=== PATIENT | female | born 1965 ===

== ENCOUNTER 2016-07-04 15:18 | Emergency (ER) | payer BC, MEDICAID ==
[2016-07-04 15:18] VITALS: BMI 28.9
[2016-07-04 15:32] VITALS: BP 117/68; PULSE 86; RESP 18; TEMP 98.7; O2SAT 99
[2016-07-04] MEDS ORDERED: Oxycodone/Acetaminophen 5/325 mg Tab PO STA (15:59)
--- NOTE | 2016-07-04 16:01 | ED PDOC ---
Upper Extremity Pain/Injury Time Seen by Provider: 07/04/16 15:40 Chief Complaint (Nursing): Upper Extremity Problem/Injury Chief Complaint (Provider): Arm pain History Per: Patient Additional Complaint(s): pt. is a 50 yo female, no PMH, presents into ER c/o rt. upper arm pain x 3 days. states while taking out the garbage she heard a crack in her upper arm. also c/o nasal congestion since last night. states she has taken Tylenol with minimal relief. Past Medical History Reviewed: Nursing Documentation, Vital Signs Vital Signs: Last Vital Signs Temp 98.7 F 07/04/16 15:30 Pulse 86 07/04/16 15:30 Resp 18 07/04/16 15:30 BP 117/68 07/04/16 15:30 Pulse Ox 99 07/04/16 15:30 - Medical History PMH: Anemia, Anxiety, CVA, HTN, Kidney Stones, Pneumonia Denies: Alzheimer's Disease, Arthritis, Asthma, Atrial Fibrillation, Bipolar Disorder, Bronchitis, CAD, Cardia Arrhythmia, CHF, COPD, Crohn's Disease, Dementia, Depression, Diverticulitis, Emphysema, Fractures, Gastritis, Gall Bladder Disease, HIV, Hypercholesterolemia, Hyperthyroidism, Hypothyroidism, Migraine, Mitral Valve Prolapse, Multiple Sclerosis, Osteoporosis, Pancreatitis , Paranoia, Parkinson's Disease, Peripheral Edema, Post Traumatic Stress Disorder, Pulmonary Embolism, Chronic Kidney Disease, Rheumatoid Arthritis, Schizophrenia, Seizures, Sickle Cell Disease, Sexually Transmitted Disease, Sleep Apnea, TIA - Surgical History Surgical History: Denies: Appendectomy, CABG, Carotid Endarterectomy, Cholecystectomy, Coronary Stent, Pacemaker, Tonsillectomy - Family History Family History: States: Unknown Family Hx - Home Medications Home Medications: Ambulatory Orders Medication Instructions Recorded Aspirin 325 mg PO DAILY 11/14/14 ALPRAZolam [Xanax] 0.25 mg PO Q12 PRN #0 tab 11/15/14 Atorvastatin Calcium [Lipitor] 10 mg PO DAILY #30 tab 11/15/14 Guaifenesin/Pseudoephedrne HCl 1 ter PO Q12H PRN #10 ter 03/17/16 [Mucinex D 600 mg-60 mg] Oseltamivir Phosphate [Tamiflu] 75 mg PO BID #10 capsule 03/17/16 Lidocaine 1 each TP Q12 #12 adh..patch 07/04/16 traMADol [Ultram] 50 mg PO Q4 #15 tab 07/04/16 - Allergies Allergies/Adverse Reactions: Allergies Allergy/AdvReac Type Severity Reaction Status Date / Time No Known Allergies Allergy Verified 07/04/16 15:30 Review of Systems ROS Statement: Except As Marked, All Systems Reviewed And Found Negative ENT: Positive for: Nose Congestion Musculoskeletal: Positive for: Arm Pain Physical Exam - Reviewed Nursing Documentation Reviewed: Yes Vital Signs Reviewed: Yes - Physical Exam Appears: Positive for: Well, Non-toxic, No Acute Distress Head Exam: Positive for: ATRAUMATIC, NORMAL INSPECTION, NORMOCEPHALIC Skin: Positive for: Normal Color, Warm, DRY Eye Exam: Positive for: EOMI, Normal appearance, PERRL ENT: Positive for: Normal ENT Inspection Neck: Positive for: Normal, Painless ROM Cardiovascular/Chest: Positive for: Regular Rate, Rhythm Respiratory: Positive for: CNT, Normal Breath Sounds Gastrointestinal/Abdominal: Positive for: Normal Exam, Bowel Sounds, Soft Back: Positive for: Normal Inspection Extremity: Positive for: Normal ROM, Tenderness (over lateral shoulder). Negative for: Deformity, Swelling Neurologic/Psych: Positive for: Alert, Oriented - ECG O2 Sat by Pulse Oximetry: 99 Medical Decision Making Medical Decision Making: XR: DJD, NAD, as read by LIV Medicated with 1 tab Percocet PO Reports feeling improved on re-eval Disposition - Clinical Impression Clinical Impression: Shoulder pain, DJD (degenerative joint disease) - Patient ED Disposition Is Patient to be Admitted: No - Disposition Disposition: Routine/Home Disposition Time: 17:18 Condition: STABLE Prescriptions: Lidocaine 1 each TP Q12 #12 adh..patch traMADol [Ultram] 50 mg PO Q4 #15 tab Instructions: Arthralgia (ED), Shoulder Pain (ED) Forms: [facility] ED School/Work Excuse - POA Present On Arrival: None
[2016-07-04] MEDS ORDERED: Oxycodone/Acetaminophen 5/325 mg Tab ONE (16:13)
--- NOTE | 2016-07-04 17:08 | RAD ---
PROCEDURE: Radiographs of the Right Shoulder HISTORY: pain w movement COMPARISON: No prior. FINDINGS: BONES: No fracture is seen. No lytic process is noted. There is minor AC joint degenerative change. There is no evidence of calcific bursitis. Glenohumeral joint is unremarkable. No lytic process is noted. Visualized right ribs are unremarkable. JOINTS: No glenohumeral spurring. No AC joint widening. Please see above. SOFT TISSUES: Normal. OTHER FINDINGS: None. IMPRESSION: No evidence of fracture or dislocation. Minor degenerative changes.
== END 2016-07-04 17:46 | disposition home or self-care (01) ==
LOC: H.ER 15:18
DX: M25.511 Pain in right shoulder (principal)